=== PATIENT | female | born 1990 | race Caucasian/White ===

== ENCOUNTER 2020-03-19 18:29 | Emergency (ER) | payer OTHER ==
[2020-03-19] MEDS ORDERED: ACETAMINOPHEN 325 MG TABLET PO ONE (18:43)
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
[2020-03-19 19:40] VITALS: BP 126/74
--- NOTE | 2020-03-19 19:57 | EKG REPORT ---
SEVERITY:- NORMAL ECG - SINUS RHYTHM : Confirmed by: Arthur Lange MD 19-Mar-2020 19:56:16
== END 2020-03-19 19:47 | disposition home or self-care (01) ==
LOC: ER 18:29
DX: M25.512 Pain in left shoulder (principal); R07.9 Chest pain, unspecified; V89.2XXA Person injured in unspecified motor-vehicle accident, traffic, initial encounter
CPT/HCPCS: 71046; 93005; 93010; 99283